=== PATIENT | male | born 1960 | race African-American/Black ===

== ENCOUNTER 2017-10-21 15:41 | Emergency (ER) | payer MEDICAID, OTHER ==
[~2017-10-21] VITALS: Ht 175.3 cm; Wt 66.0 kg
[2017-10-21] MEDS ORDERED: AMOXICILLIN 500 MG CAPSULE PO ONE (20:15)
[2017-10-21] MEDS ORDERED: HYDROCODONE/ACETAMINOPHEN 5/325MG TABLET PO ONE (20:15)
[2017-10-21 21:14] VITALS: BP 197/93
== END 2017-10-21 21:18 | disposition home or self-care (01) ==
LOC: ER 15:41
DX: K12.2 Cellulitis and abscess of mouth (principal); R68.84 Jaw pain; K04.7 Periapical abscess without sinus; F17.200 Nicotine dependence, unspecified, uncomplicated
CPT/HCPCS: 99283

== ENCOUNTER 2022-12-15 14:28 | Emergency (ER) | payer MEDICAID ==
[~2022-12-15] VITALS: Ht 177.8 cm; Wt 66.0 kg
[2022-12-15 14:44] VITALS: O2SAT 99
[2022-12-15] MEDS ORDERED: IBUP-2030 MT (15:57)
[2022-12-15] MEDS ORDERED: AMOX1TAB16 MT (15:57)
[2022-12-15] MEDS ORDERED: HYDROCODONE/ACETAMINOPHEN 5/325MG TABLET PO ONE (16:00)
[2022-12-15] MEDS ORDERED: KETOROLAC 60MG/2ML VIAL IM ONE (16:00)
[2022-12-15] MEDS ORDERED: AMOXICILLIN/POTASSIUM CLAVULANATE 875/125MG TAB PO ONE (16:00)
[2022-12-15 16:31] VITALS: BP 145/98; PULSE 73; RESP 18; TEMP 98.2
== END 2022-12-15 16:32 | disposition home or self-care (01) ==
LOC: ER 14:41
DX: K04.7 Periapical abscess without sinus (principal)
CPT/HCPCS: 99283; 96372; J1885

== ENCOUNTER 2023-08-26 11:43 | Emergency (ER) | payer MEDICAID ==
[~2023-08-26] VITALS: Ht 175.3 cm; Wt 65.0 kg
[~2023-08-26 11:43] MED LIST: AMOX1TAB16 MT; IBUP-2030 MT
[2023-08-26 12:15] VITALS: O2SAT 97
[2023-08-26] MEDS ORDERED: IBUP-2030 MT (13:41)
[2023-08-26] MEDS ORDERED: CEPH500C2 MT (13:41)
[2023-08-26 14:04] VITALS: BP 136/78; PULSE 78; RESP 18; TEMP 98.2
== END 2023-08-26 14:05 | disposition home or self-care (01) ==
LOC: ER 11:43
DX: L03.317 Cellulitis of buttock (principal)
CPT/HCPCS: 99283